=== PATIENT | male | born 1990 | race Caucasian/White ===

== ENCOUNTER → 2017-05-31 | Outpatient (CLI) | payer OTHER ==
--- NOTE | 2017-06-01 09:40 | DI ---
XR RIBS 2VW U/L,05/31/2017 5:37 PM: Clinical History: Back pain. Previous Exam: March 01, 2016 Findings: 3 views of the left ribs are obtained, and demonstrate anatomic alignment without fractures. There is no evidence of pneumothorax and no evidence of pleural effusion. The cardiomediastinum and bony thor ax are unremarkable. Impression: No evidence of rib fracture.
--- NOTE | 2017-06-01 09:40 | DI ---
XR L-SPINE MIN 4 VW,05/31/2017 5:35 PM: Clinical History: Acute bilateral low back pain with left-sided sciatica. Previous Exam: March 2012 Findings: AP lateral and coned-down views of the lumbar spine are obtained, and demonstrate anatomic alignment without fractures. There is loss of intervertebral disc height at the L5/S1 level. A nonobstructive bowel gas pattern is seen. No pathologic calcifications are seen. Impression: Mild degenerative disc disease at L5/S1 otherwise unremarkable.
== END ==
LOC: MOB RAD 17:38
DX: M54.42 Lumbago with sciatica, left side (principal); R07.81 Pleurodynia; M47.817 Spondylosis without myelopathy or radiculopathy, lumbosacral region; Z72.0 Tobacco use; W17.89XA Other fall from one level to another, initial encounter; Y93.89 Activity, other specified
CPT/HCPCS: 71100; 72110